=== PATIENT | male | born 1935 | race Caucasian/White ===

== ENCOUNTER → 2017-11-02 | Outpatient (CLI) | payer OTHER ==
[~2017-11-02] MED LIST: AMLODIPINE BESYL5 MG PO; CLONIDINE HCL0.1 M1 PO; COLACE100 MG PO; FENOFIBRATE130 M1 PO; GLUCOSAMINE1000 MG PO; HYDROCHLOROTHIA50 M1 PO; JANTOVEN4 M1 PO; LEUKERAN PO; MULTI VITAMINS1 TAB PO; OMEGA-31000 MG PO; TAMSULOSIN HCL0.4 MG PO; TOPROL XL50 M1 PO; VITAMIN D1000 IU PO
--- NOTE | ~2017-11-02 | PROC NOTE ---
[place], [place] PROCEDURE NOTE NAME: ELIZABETH TRUONG UNIT #: [id number] ROOM: DOCTOR: MAN PARKS BIRTHDATE: [birth year] DOS: 11/02/2017 MODIFIED BARIUM SWALLOW STUDY REFERRING PHYSICIAN: Dr. Wheeler. RADIOLOGIST: Dr. Perea. INDICATIONS: The patient is an 82-year-old male referred for an outpatient modified barium swallow due to recent nasopharyngeal regurgitation during a barium swallow procedure. The patient's significant medical history includes AFib and a fall (04/2016). The patient also reported hiatal hernia and esophageal dilation. GENERAL COMMENTS: Patient remained awake, alert, and pleasant throughout the exam. He endorsed history of nasopharyngeal regurgitation reporting that occasionally small foods such as rice would be expectorated from his nose after meals. He endorsed recent episode of nasopharyngeal regurgitation during procedure, but felt this was due to poor positioning. He denied additional swallowing concerns such as coughing/choking and reported that he consumes a regular diet with thin liquids. Oral mechanism exam unremarkable. The patient with upper and lower dentures in place. MBSS METHODS: Patient was seated upright in the chair during the exam. Exam was viewed in the lateral plane. The patient self-fed the following barium impregnated consistencies: Single sips of thin liquid via cup x 2, multiple consecutive sips of thin liquid via cup x 1, teaspoon of puree x 1 and bite of coarse solids x 1. The patient took large bites/sips. ORAL PHASE: No anterior or posterior loss noted. AP bolus transit was timely and adequate. Mastication also timely and complete. No contrast was observed entering the nasopharynx. PHARYNGEAL PHASE: Initiation of the swallow response was timely. HLE was adequate in both superior and anterior planes with subsequent complete epiglottic retroflexion. No aspiration or penetration was observed. Diffuse pharyngeal residue noted following bite of solids, disappeared due to bite size as base of tongue to posterior pharyngeal wall contact was adequate. Pharyngeal residue reduced with subsequent un-cued swallows. IMPRESSION: The patient presents with normal swallowing function and remains appropriate for regular diet with thin liquids. History of nasopharyngeal regurgitation appears to potentially esophageal in nature as regurgitation occurred with small foods and after the patient had finished eating/drinking. RECOMMENDATIONS: 1. Continue current diet, regular foods with thin liquids. 2. Standard aspiration precautions, fully upright, awake and alert for all [place], [place] PROCEDURE NOTE NAME: ELIZABETH TRUONG UNIT #: [id number] ROOM: DOCTOR: MAN PARKS BIRTHDATE: 37 p.o., small bites/sips, oral care at least b.i.d. Findings and recommendations were reviewed with the patient who expressed understanding. PLAN OF CARE: No further DIRECTORY CARRIER followup is warranted at this time. Thank you for consulting. Please contact the DIRECTORY CARRIER Department on [phone] with any questions/concerns. Man Rajput CM:PROCNOTE:PROCEDURE NOTE [id number] MAN PARKS
--- NOTE | ~2017-11-02 | SLPPN ---
[place], [place] COMMUNICATION CENTER OPERATOR PROGRESS NOTE NAME: ELIZABETH TRUONG UNIT #: [id number] ROOM: DOCTOR: ANDRES NUR Speech Language Pathology Treatment Note Page 1 1 of Patient Name: ELIZABETH TRUONG Date: 11/02/2017 10:47 AM : 1935 SOC Date: 11/02/2017 Provider: [facility] Provider #: [id number] Treating Clinician: SHERIF Guo Referring Physician: ANDRES NUR Onset Date Description Code Primary Diagnosis: 11/02/2017 R13.10 Dysphagia, unspecified Time In: 10:00 Time Out: 10:40 COMMUNICATION CENTER OPERATOR Interventions and CPT Codes Consisted of: CPT Code Modifiers Minutes Units MOTION FLUOROSCOPY/SWALLOW 76240 40 1 Total Minutes: 40 Total Timed Minutes: 0 Total Untimed Minutes: 40 Total Units: 1 Total Timed Units: 0 Total Untimed Units: 1 11/02/2017 10:48:52 AM SHERIF Guo Date/Time State License #: [id number]:[id number] [facility] [place]
--- NOTE | ~2017-11-02 | SLPPOC ---
[place], [place] MANAGER OF SALES PLAN OF CARE NAME: ELIZABETH TRUONG UNIT #: [id number] ROOM: DOCTOR: ANDRES NUR Speech Language Pathology Plan of Care Page 1 1 (Initial Evaluation) of Patient Name: ELIZABETH TRUONG Date: 11/02/2017 10:46 AM : 1935 SOC Date: 11/02/2017 Provider: [facility] Provider #: [id number] Treating Clinician: Gabrielle Rajput CCC-MANAGER OF SALES Referring Physician: ANDRES NUR 1 Visits From SOC: Onset Date Description Code Primary Diagnosis: 11/02/2017 R13.10 Dysphagia, unspecified Subjective Comments: Initial evaluation created to initiate the electronic medical record. Please see [employer] for details. Initial Level Goals Goals Yes Patient / Caregiver concurs with established treatment plan and goals: Functional Limitation Reporting Swallowing G8996 - Swallowing functional limitation, current status at therapy episode outset and at reporting intervals Current Status: CH - 0 percent impaired, limited or restricted G8997 - Swallowing functional limitation, projected goal status, at therapy episode outset, at reporting intervals, and at discharge or to end reporting Goal Status: CH - 0 percent impaired, limited or restricted G8998 - Swallowing functional limitation, discharge status, at discharge from therapy or to end reporting Discharge Status: CH - 0 percent impaired, limited or restricted 11/02/2017 10:47:52 AM ANDRES NUR Date/Time SHERIF Guo Date I certify the need for these services furnished under this plan of treatment while under my care. State License #: CM:[id number] [facility] [place]
--- NOTE | ~2017-11-02 | SLPIE ---
[place], [place] CANAL EQUIPMENT MAINTENANCE SUPERVISOR INITIAL EVALUATION NAME: ELIZABETH TRUONG UNIT #: [id number] ROOM: DOCTOR: ANDRES NUR Speech Language Pathology Initial Evaluation Page 1 1 of Patient Name: ELIZABETH TRUONG Date: 11/02/2017 10:46 AM : 1935 SOC Date: 11/02/2017 Provider: [facility] Provider #: [id number] Treating Clinician: Gabrielle Rajput CCC-CANAL EQUIPMENT MAINTENANCE SUPERVISOR Referring Physician: ANDRES NUR Patient Information Address: [place] [address] Physician: ANDRES NUR Physician #: City, [facility], Zip: [place] [address] Occupation: Unknown # of Approved Visits: 0 Gender: Male Kennel Aide: BRADFORD TRUONG Rehabilitation Information / History Onset Date Description Code R13.10 Dysphagia, unspecified Primary Diagnosis: 11/02/2017 Subjective Comments: Initial evaluation created to initiate the electronic medical record. Please see [employer] for details. Rehabilitation Information / History Clinical Findings Functional Goals Goals Yes Patient / Caregiver concurs with established treatment plan and goals: Functional Limitation Reporting Swallowing G8996 - Swallowing functional limitation, current status at therapy episode outset and at reporting intervals Current Status: CH - 0 percent impaired, limited or restricted G8997 - Swallowing functional limitation, projected goal status, at therapy episode outset, at reporting intervals, and at discharge or to end reporting Goal Status: CH - 0 percent impaired, limited or restricted G8998 - Swallowing functional limitation, discharge status, at discharge from therapy or to end reporting Discharge Status: CH - 0 percent impaired, limited or restricted 11/02/2017 10:47:52 AM Gabrielle Rajput CCC-ANSELMO Date/Time [place], [place] CANAL EQUIPMENT MAINTENANCE SUPERVISOR INITIAL EVALUATION NAME: ELIZABETH TRUONG UNIT #: [id number] ROOM: DOCTOR: ANDRES NUR [facility] License #: CM:SLPIE [id number] [facility] [place]
== END | disposition home or self-care (01) ==
LOC: RAD/SH 09:42
DX: R13.10 Dysphagia, unspecified (principal)

== ENCOUNTER → 2019-10-17 | Outpatient (CLI) | payer OTHER ==
[2019-10-17 10:30] LABS: CHOLESTEROL 193 mg/dL (<200); HDL CHOLESTEROL 32 mg/dl (40-60); LDL CHOLESTEROL 138 mg/dL (9-159); TRIGLYCERIDES 113 mg/dl (<150); VLDL CHOLESTEROL 23 mg/dL (6-40)
== END | disposition home or self-care (01) ==
LOC: LAB 09:33
PROVIDERS: Family Medicine
DX: I10 Essential (primary) hypertension (principal); E78.2 Mixed hyperlipidemia

== ENCOUNTER 2021-04-10 18:27 | Inpatient (IN) | payer OTHER ==
[~2021-04-10] VITALS: Ht 187.9 cm; Wt 102.1 kg
[2021-04-10 18:31] VITALS: BP 195/102
[2021-04-10 19:44] LABS: BASO % 0.3 % (0.0-1.0); EOS % 0.3 % (1.0-4.0); HEMATOCRIT 43.2 % (42.0-52.0); LYMPH # 2.6 10*3/uL (1.3-4.4); LYMPH % 41.2 % (27.0-41.0); MEAN CELL VOLUME 91.5 fl (80.0-94.0); MEAN CORPUSCULAR HGB 31.1 pg (27.0-31.0); MEAN PLATELET VOLUME 8.8 fl (9.6-12.3); MONO # 0.4 10*3/uL (0.1-1.0); MONO % 6.2 % (3.0-9.0); NEUT # 3.3 10*3/uL (2.3-7.9); NEUT % 51.5 % (47.0-73.0); PLATELET COUNT AUTOMATED 206 10*3/uL (130-400); RED BLOOD COUNT 4.72 10*6/uL (4.50-5.90); RED CELL DISTRI WIDTH 14.1 % (0-14.5); WHITE BLOOD COUNT 6.3 10*3/uL (4.8-10.8)
[2021-04-10 20:02] LABS: ALBUMIN 3.5 gm/dl (3.1-4.5); ALKALINE PHOSPHATASE 38 U/L (45-117); BUN 16 mg/dl (7-24); CHLORIDE 107 mmol/L (98-107); SGOT/AST 21 IU/L (3-35); SGPT/ALT 22 U/L (12-78); SODIUM 140 mmol/L (136-145); TOTAL PROTEIN 7.9 gm/dL (6.4-8.2)
[2021-04-10 20:05] LABS: TROPONIN I < 0.015 ng/ml (<0.045)
[2021-04-10 20:43] LABS: BILIRUBIN Negative (Negative); BLOOD Negative (Negative); CLARITY Clear (Clear); COLOR Yellow (Yellow); GLUCOSE Negative (Negative); KETONE Negative (Negative); LEUKO ESTERASE Trace (Negative); NITRITE Negative (Negative); PH 6.5 (4.5-8.0); SPECIFIC GRAVITY 1.015 (1.001-1.030); UROBILINOGEN 0.2 E.U./dl (0.0-1.0)
[2021-04-10 21:34] VITALS: BP 176/108
[2021-04-10 23:08] VITALS: BP 177/85
[2021-04-10 23:17] VITALS: BP 146/97
[2021-04-11 00:25] VITALS: BP 133/73
[2021-04-11 03:22] VITALS: BP 140/78
[2021-04-11 05:26] VITALS: BP 132/81
[2021-04-11 06:01] LABS: CHLORIDE 108 mmol/L (98-107); POTASSIUM 4.3 mmol/L (3.5-5.1); SODIUM 142 mmol/L (136-145)
[2021-04-11 06:11] LABS: BASO % 0.5 % (0.0-1.0); EOS # 0.1 10*3/uL (0.0-0.4); EOS % 1.1 % (1.0-4.0); HEMATOCRIT 40.1 % (42.0-52.0); LYMPH # 3.9 10*3/uL (1.3-4.4); LYMPH % 47.7 % (27.0-41.0); MEAN CELL VOLUME 92.8 fl (80.0-94.0); MEAN CORPUSCULAR HGB CONC 33.4 g/dl (33.0-37.0); MEAN PLATELET VOLUME 9.1 fl (9.6-12.3); MONO # 0.7 10*3/uL (0.1-1.0); NEUT # 3.4 10*3/uL (2.3-7.9); NEUT % 41.3 % (47.0-73.0); PLATELET COUNT AUTOMATED 212 10*3/uL (130-400); RED BLOOD COUNT 4.32 10*6/uL (4.50-5.90); RED CELL DISTRI WIDTH 13.9 % (0-14.5); WHITE BLOOD COUNT 8.3 10*3/uL (4.8-10.8)
[2021-04-11 06:19] LABS: ACT PARTIAL THROMBO TIME 41.9 SECONDS (20.0-32.1); ALKALINE PHOSPHATASE 29 U/L (45-117); BUN 14 mg/dl (7-24); CREATININE 0.96 mg/dL (0.70-1.30); INTERNATIONAL NORM RATIO 2.8 (2.0-3.5); SGOT/AST 17 IU/L (3-35); SGPT/ALT 20 U/L (12-78); TOTAL PROTEIN 6.9 gm/dL (6.4-8.2)
[2021-04-11 08:48] VITALS: BP 134/79
[2021-04-11] MEDS ORDERED: LASIX20 MG PO (13:03)
[2021-04-11] MEDS ORDERED: MECLIZINE HYD12.5 MG PO (13:04)
[2021-04-11] MEDS ORDERED: COZAAR100 MG PO (13:06)
[2021-04-11 14:20] VITALS: BP 152/95
[2021-04-11 16:33] VITALS: BP 127/70
== END 2021-04-11 16:40 | disposition home or self-care (01) | DRG 69 ==
LOC: ED 18:27 → EDHOLD 22:21 → 4E 04-11 16:37
PROVIDERS: Emergency Medicine; Hospitalist; ADMIT Internal Medicine; ATTEND Internal Medicine
DX: G45.9 Transient cerebral ischemic attack, unspecified (principal); G93.41 Metabolic encephalopathy; I48.21 Permanent atrial fibrillation; E44.1 Mild protein-calorie malnutrition; E83.41 Hypermagnesemia; R73.9 Hyperglycemia, unspecified; E78.5 Hyperlipidemia, unspecified; R56.9 Unspecified convulsions; I10 Essential (primary) hypertension; Z90.49 Acquired absence of other specified parts of digestive tract; Z87.891 Personal history of nicotine dependence; Z83.3 Family history of diabetes mellitus; Z79.899 Other long term (current) drug therapy; Z79.01 Long term (current) use of anticoagulants; Z95.0 Presence of cardiac pacemaker

== ENCOUNTER 2021-10-26 11:05 | Emergency (ER) | payer OTHER ==
[~2021-10-26 11:05] MED LIST changes: +COZAAR100 MG PO; +LASIX20 MG PO; +MECLIZINE HYD12.5 MG PO
[2021-10-26 11:34] LABS: BASO % 0.5 % (0.0-1.0); EOS # 0.1 10*3/uL (0.0-0.4); EOS % 0.6 % (1.0-4.0); HEMATOCRIT 43.6 % (42.0-52.0); LYMPH # 4.4 10*3/uL (1.3-4.4); MEAN CELL VOLUME 92.6 fl (80.0-94.0); MEAN CORPUSCULAR HGB CONC 33.5 g/dl (33.0-37.0); MEAN PLATELET VOLUME 8.5 fl (9.6-12.3); MONO # 0.8 10*3/uL (0.1-1.0); MONO % 9.6 % (3.0-9.0); NEUT % 35.9 % (47.0-73.0); PLATELET COUNT AUTOMATED 178 10*3/uL (130-400); RED BLOOD COUNT 4.71 10*6/uL (4.50-5.90); RED CELL DISTRI WIDTH 14.6 % (0-14.5); WHITE BLOOD COUNT 8.4 10*3/uL (4.8-10.8)
[2021-10-26 11:44] LABS: INTERNATIONAL NORM RATIO 2.6 (2.0-3.5)
[2021-10-26 11:51] LABS: ALKALINE PHOSPHATASE 31 U/L (45-117); BUN 22 mg/dl (7-24); CHLORIDE 107 mmol/L (98-107); CREATININE 1.23 mg/dL (0.70-1.30); POTASSIUM 3.9 mmol/L (3.5-5.1); SGOT/AST 18 IU/L (3-35); SGPT/ALT 18 U/L (12-78); SODIUM 140 mmol/L (136-145); TOTAL PROTEIN 7.5 gm/dL (6.4-8.2)
[2021-10-26 12:07] LABS: BILIRUBIN Negative (Negative); BLOOD Negative (Negative); CLARITY Clear (Clear); COLOR Yellow (Yellow); GLUCOSE Negative (Negative); KETONE Negative (Negative); LEUKO ESTERASE 2+ (Negative); NITRITE Negative (Negative); PH 5.5 (4.5-8.0); SPECIFIC GRAVITY 1.015 (1.001-1.030)
[2021-10-26] MEDS ORDERED: ATIVAN0.5 MG PO (19:42)
== END 2021-10-26 21:17 | disposition home or self-care (01) ==
LOC: ED 11:05
PROVIDERS: Physician Assistant
DX: F41.9 Anxiety disorder, unspecified (principal); R60.9 Edema, unspecified; Z87.891 Personal history of nicotine dependence; Z90.49 Acquired absence of other specified parts of digestive tract; Z98.890 Other specified postprocedural states; Z79.01 Long term (current) use of anticoagulants; Z79.899 Other long term (current) drug therapy

== ENCOUNTER 2022-01-17 15:50 | Inpatient (IN) | payer OTHER ==
[~2022-01-17] VITALS: Ht 187.9 cm; Wt 92.7 kg
[~2022-01-17 15:50] MED LIST changes: +ATIVAN0.5 MG PO
[2022-01-17 15:59] VITALS: BP 172/92
[2022-01-17 16:20] LABS: BILIRUBIN Negative (Negative); BLOOD Negative (Negative); CLARITY Clear (Clear); COLOR Yellow (Yellow); GLUCOSE Negative (Negative); KETONE Negative (Negative); LEUKO ESTERASE 1+ (Negative); NITRITE Negative (Negative); PH 5.5 (4.5-8.0); SPECIFIC GRAVITY 1.015 (1.001-1.030)
[2022-01-17 16:40] LABS: BASO % 0.5 % (0.0-1.0); EOS % 0.1 % (1.0-4.0); HEMATOCRIT 45.8 % (42.0-52.0); LYMPH # 4.1 10*3/uL (1.3-4.4); LYMPH % 50.5 % (27.0-41.0); MEAN CELL VOLUME 93.1 fl (80.0-94.0); MEAN CORPUSCULAR HGB 31.1 pg (27.0-31.0); MEAN CORPUSCULAR HGB CONC 33.4 g/dl (33.0-37.0); MONO # 0.6 10*3/uL (0.1-1.0); NEUT # 3.4 10*3/uL (2.3-7.9); NEUT % 41.7 % (47.0-73.0); PLATELET COUNT AUTOMATED 176 10*3/uL (130-400); RED BLOOD COUNT 4.92 10*6/uL (4.50-5.90); RED CELL DISTRI WIDTH 14.3 % (0-14.5); WHITE BLOOD COUNT 8.2 10*3/uL (4.8-10.8)
[2022-01-17 16:40] LABS: BACTERIA 2+
[2022-01-17 16:51] LABS: ACT PARTIAL THROMBO TIME 36.7 SECONDS (20.0-32.1)
[2022-01-17 17:07] LABS: ALKALINE PHOSPHATASE 37 U/L (45-117); BUN 18 mg/dl (7-24); CHLORIDE 104 mmol/L (98-107); CREATININE 1.08 mg/dL (0.70-1.30); LIPASE 281 U/L (73-393); POTASSIUM 4.1 mmol/L (3.5-5.1); SGOT/AST 18 IU/L (3-35); SGPT/ALT 20 U/L (12-78); SODIUM 137 mmol/L (136-145); TOTAL PROTEIN 7.7 gm/dL (6.4-8.2)
[2022-01-17 18:47] VITALS: BP 167/72
[2022-01-17 19:37] VITALS: BP 159/105
[2022-01-18] VITALS: BP 160/79
[2022-01-18 06:24] LABS: HEMATOCRIT 44.7 % (42.0-52.0); MANUAL DIFF REFLEX YES; MEAN CELL VOLUME 93.1 fl (80.0-94.0); MEAN CORPUSCULAR HGB CONC 33.3 g/dl (33.0-37.0); MEAN PLATELET VOLUME 9.4 fl (9.6-12.3); PLATELET COUNT AUTOMATED 195 10*3/uL (130-400); WHITE BLOOD COUNT 13.3 10*3/uL (4.8-10.8)
[2022-01-18 06:51] LABS: CHLORIDE 103 mmol/L (98-107); POTASSIUM 4.3 mmol/L (3.5-5.1); SODIUM 139 mmol/L (136-145)
[2022-01-18 06:58] LABS: ALKALINE PHOSPHATASE 35 U/L (45-117); BUN 19 mg/dl (7-24); CREATININE 1.06 mg/dL (0.70-1.30); SGOT/AST 17 IU/L (3-35); SGPT/ALT 17 U/L (12-78); TOTAL PROTEIN 7.7 gm/dL (6.4-8.2)
[2022-01-18 07:19] LABS: BASOPHILS 1 % (0-1); TOTAL CELLS COUNTED 100 #CELLS
[2022-01-18 07:20] LABS: BURR CELLS FEW; PLATELET SUFFICIENCY NORMAL (NORMAL); POLYCHROMASIA SLIGHT
[2022-01-18 08:00] VITALS: BP 157/82
[2022-01-18] MEDS ORDERED: SERTRALINE HYDR25 MG PO (09:11)
[2022-01-18 12:00] VITALS: BP 136/76
[2022-01-18 16:00] VITALS: BP 147/75
[2022-01-18 20:00] VITALS: BP 143/72
[2022-01-19] VITALS: BP 141/87
[2022-01-19 05:40] LABS: BUN 20 mg/dl (7-24); CHLORIDE 106 mmol/L (98-107); CREATININE 1.11 mg/dL (0.70-1.30); POTASSIUM 3.8 mmol/L (3.5-5.1); SODIUM 141 mmol/L (136-145)
[2022-01-19 06:17] LABS: HEMATOCRIT 45.1 % (42.0-52.0); MEAN CELL VOLUME 90.7 fl (80.0-94.0); MEAN CORPUSCULAR HGB 31.4 pg (27.0-31.0); MEAN CORPUSCULAR HGB CONC 34.6 g/dl (33.0-37.0); MEAN PLATELET VOLUME 9.4 fl (9.6-12.3); PLATELET COUNT AUTOMATED 215 10*3/uL (130-400); RED BLOOD COUNT 4.97 10*6/uL (4.50-5.90); RED CELL DISTRI WIDTH 14.1 % (0-14.5)
[2022-01-19 06:19] LABS: INTERNATIONAL NORM RATIO 1.8 (2.0-3.5)
[2022-01-19 06:22] LABS: MANUAL DIFF REFLEX YES
[2022-01-19 07:02] LABS: PLATELET SUFFICIENCY NORMAL (NORMAL); POLYCHROMASIA SLIGHT; TOTAL CELLS COUNTED 100 #CELLS
[2022-01-19 08:00] VITALS: BP 158/90
[2022-01-19 12:00] VITALS: BP 110/65
[2022-01-19 16:00] VITALS: BP 117/73
[2022-01-19 20:00] VITALS: BP 142/83
[2022-01-20] VITALS: BP 155/85
[2022-01-20 06:26] LABS: HEMATOCRIT 42.7 % (42.0-52.0); MEAN CELL VOLUME 92.8 fl (80.0-94.0); MEAN CORPUSCULAR HGB 30.9 pg (27.0-31.0); MEAN CORPUSCULAR HGB CONC 33.3 g/dl (33.0-37.0); MEAN PLATELET VOLUME 9.2 fl (9.6-12.3); PLATELET COUNT AUTOMATED 158 10*3/uL (130-400); RED CELL DISTRI WIDTH 14.3 % (0-14.5); WHITE BLOOD COUNT 11.6 10*3/uL (4.8-10.8)
[2022-01-20 06:32] LABS: MANUAL DIFF REFLEX YES
[2022-01-20 07:01] LABS: BUN 17 mg/dl (7-24); CHLORIDE 108 mmol/L (98-107); CREATININE 0.96 mg/dL (0.70-1.30); POTASSIUM 3.2 mmol/L (3.5-5.1); SGOT/AST 29 IU/L (3-35); SGPT/ALT 20 U/L (12-78); SODIUM 143 mmol/L (136-145)
[2022-01-20 07:02] LABS: ALKALINE PHOSPHATASE 31 U/L (45-117); TOTAL PROTEIN 6.6 gm/dL (6.4-8.2)
[2022-01-20 07:28] LABS: OVALOCYTES FEW; PLATELET SUFFICIENCY NORMAL (NORMAL); POLYCHROMASIA SLIGHT; TOTAL CELLS COUNTED 100 #CELLS
[2022-01-20 08:00] VITALS: BP 148/88
[2022-01-20] MEDS ORDERED: CIPRO500 MG PO (11:45)
[2022-01-20 12:00] VITALS: BP 155/84
== END 2022-01-20 15:29 | disposition home health service (06) | DRG 689 ==
LOC: ED 15:50 → 4E 18:19 → EDHOLD 18:19 → 4E 23:13
PROVIDERS: Emergency Medicine; Family Medicine; Internal Medicine; Physical Therapist; Registered Nurse; ADMIT Internal Medicine; ATTEND Internal Medicine
DX: N39.0 Urinary tract infection, site not specified (principal); G93.41 Metabolic encephalopathy; C91.10 Chronic lymphocytic leukemia of B-cell type not having achieved remission; I48.21 Permanent atrial fibrillation; G31.9 Degenerative disease of nervous system, unspecified; N40.0 Benign prostatic hyperplasia without lower urinary tract symptoms; F41.9 Anxiety disorder, unspecified; E83.41 Hypermagnesemia; R73.9 Hyperglycemia, unspecified; R59.1 Generalized enlarged lymph nodes; Z98.49 Cataract extraction status, unspecified eye; Z90.49 Acquired absence of other specified parts of digestive tract; Z83.3 Family history of diabetes mellitus; Z95.0 Presence of cardiac pacemaker

== ENCOUNTER 2022-10-26 14:32 | Inpatient (IN) | payer OTHER ==
[~2022-10-26] VITALS: Ht 187.9 cm; Wt 112.5 kg
[2022-10-26 14:32] VITALS: BP 145/81
[~2022-10-26 14:32] MED LIST changes: +CEPHALEXIN500 M1 PO; +CIPRO500 MG PO; +FISH OIL 1,2001 EAC4 PO; -OMEGA-31000 MG PO; +SERTRALINE HYDR25 MG PO
[2022-10-26] MEDS ORDERED: FLUOROURACIL40 GM T (15:02)
[2022-10-26] MEDS ORDERED: GENTACIDIN5 ML NAS (15:03)
[2022-10-26] MEDS ORDERED: KENALOG 0.1%80 GM T (15:03)
[2022-10-26] MEDS ORDERED: FEXOFENADINE H180 M1 PO (15:05)
[2022-10-26 15:06] LABS: HEMATOCRIT 42.6 % (42.0-52.0); MANUAL DIFF REFLEX YES; MEAN CELL VOLUME 94.2 fl (80.0-94.0); MEAN CORPUSCULAR HGB 31.6 pg (27.0-31.0); MEAN CORPUSCULAR HGB CONC 33.6 g/dl (33.0-37.0); MEAN PLATELET VOLUME 8.8 fl (9.6-12.3); PLATELET COUNT AUTOMATED 185 10*3/uL (130-400); RED BLOOD COUNT 4.52 10*6/uL (4.50-5.90); RED CELL DISTRI WIDTH 14.4 % (0-14.5); WHITE BLOOD COUNT 13.7 10*3/uL (4.8-10.8)
[2022-10-26 15:25] LABS: ACT PARTIAL THROMBO TIME 39.6 SECONDS (20.0-32.1); INTERNATIONAL NORM RATIO 2.1 (2.0-3.5)
[2022-10-26 15:30] LABS: ALKALINE PHOSPHATASE 35 U/L (46-116); BUN 14 mg/dl (9-23); CHLORIDE 103 mmol/L (98-107); LIPASE 56 U/L (12-53); POTASSIUM 3.9 mmol/L (3.4-5.1); SGPT/ALT 11 U/L (10-49); TOTAL PROTEIN 7.8 gm/dL (6.0-8.0)
[2022-10-26 15:37] LABS: ATYPICAL LYMPHS 3 % (0-0); PLATELET SUFFICIENCY NORMAL (NORMAL); TOTAL CELLS COUNTED 100 #CELLS
[2022-10-26 15:39] LABS: OVALOCYTES FEW
[2022-10-26 15:53] LABS: BILIRUBIN Negative (Negative); BLOOD Trace-Lysed (Negative); CLARITY Clear (Clear); COLOR Yellow (Yellow); GLUCOSE Negative (Negative); KETONE Negative (Negative); LEUKO ESTERASE 3+ (Negative); NITRITE Negative (Negative); PH 5.5 (4.5-8.0); UROBILINOGEN 0.2 E.U./dl (0.0-1.0)
[2022-10-26 16:05] LABS: BACTERIA 1+; WBC 21-30 wbc/hpf (0-5)
[2022-10-26 21:47] VITALS: BP 163/78
[2022-10-27 03:15] VITALS: BP 154/73
[2022-10-27 04:58] LABS: INTERNATIONAL NORM RATIO 1.9 (2.0-3.5)
[2022-10-27 05:16] LABS: ALKALINE PHOSPHATASE 31 U/L (46-116); BUN 17 mg/dl (9-23); CHLORIDE 105 mmol/L (98-107); CHOLESTEROL 186 mg/dL (<200); LDL CHOLESTEROL 132 mg/dL (9-159); SGPT/ALT 9 U/L (10-49); THYROID STIM HORMONE (HS) 3.568 uIU/ml (0.550-4.780); TOTAL PROTEIN 7.2 gm/dL (6.0-8.0); TRIGLYCERIDES 148 mg/dl (<150)
[2022-10-27 06:10] LABS: VITAMIN D, 25-HYDROXY 46.3 ng/mL (30-100)
[2022-10-27 06:22] LABS: HEMATOCRIT 41.4 % (42.0-52.0); MEAN CELL VOLUME 94.3 fl (80.0-94.0); MEAN CORPUSCULAR HGB 31.4 pg (27.0-31.0); MEAN CORPUSCULAR HGB CONC 33.3 g/dl (33.0-37.0); MEAN PLATELET VOLUME 9.1 fl (9.6-12.3); PLATELET COUNT AUTOMATED 193 10*3/uL (130-400); RED BLOOD COUNT 4.39 10*6/uL (4.50-5.90); RED CELL DISTRI WIDTH 14.3 % (0-14.5); WHITE BLOOD COUNT 14.5 10*3/uL (4.8-10.8)
[2022-10-27 06:25] LABS: MANUAL DIFF REFLEX YES
[2022-10-27 07:47] LABS: PLATELET SUFFICIENCY NORMAL (NORMAL); TOTAL CELLS COUNTED 100 #CELLS
[2022-10-27 08:00] VITALS: BP 134/73
[2022-10-27] MEDS ORDERED: PROSCAR5 M1 PO (09:55)
[2022-10-27 12:00] VITALS: BP 114/61
[2022-10-27 16:00] VITALS: BP 155/80
[2022-10-27 20:00] VITALS: BP 141/79
[2022-10-28] VITALS: BP 116/65
[2022-10-28 08:00] VITALS: BP 130/66
[2022-10-28 12:00] VITALS: BP 143/76
[2022-10-28 16:00] VITALS: BP 112/64
[2022-10-28 20:00] VITALS: BP 143/78
[2022-10-29] VITALS: BP 134/73
[2022-10-29 04:34] LABS: HEMATOCRIT 37.9 % (42.0-52.0); MEAN CORPUSCULAR HGB 31.3 pg (27.0-31.0); MEAN CORPUSCULAR HGB CONC 33.2 g/dl (33.0-37.0); PLATELET COUNT AUTOMATED 175 10*3/uL (130-400); RED BLOOD COUNT 4.03 10*6/uL (4.50-5.90); RED CELL DISTRI WIDTH 14.2 % (0-14.5); WHITE BLOOD COUNT 14.5 10*3/uL (4.8-10.8)
[2022-10-29 04:42] LABS: MANUAL DIFF REFLEX YES
[2022-10-29 04:52] LABS: INTERNATIONAL NORM RATIO 1.6 (2.0-3.5)
[2022-10-29 05:41] LABS: ATYPICAL LYMPHS 3 % (0-0); BASOPHILS 1 % (0-1); PLATELET SUFFICIENCY NORMAL (NORMAL); TOTAL CELLS COUNTED 100 #CELLS
[2022-10-29 08:00] VITALS: BP 154/85
[2022-10-29 12:00] VITALS: BP 112/59
[2022-10-29] MEDS ORDERED: LEVOFLOXACIN750 M2 PO (12:19)
== END 2022-10-29 14:41 | disposition home or self-care (01) | DRG 689 ==
LOC: ED 14:32 → EDHOLD 17:13 → 5E 10-27 03:20
PROVIDERS: Emergency Medicine; Internal Medicine; Student in an Organized Health Care Education/Training Program; ADMIT Internal Medicine; ATTEND Internal Medicine
DX: N39.0 Urinary tract infection, site not specified (principal); G93.41 Metabolic encephalopathy; C91.10 Chronic lymphocytic leukemia of B-cell type not having achieved remission; R31.9 Hematuria, unspecified; I10 Essential (primary) hypertension; R73.9 Hyperglycemia, unspecified; I48.91 Unspecified atrial fibrillation; F41.9 Anxiety disorder, unspecified; G31.9 Degenerative disease of nervous system, unspecified; R56.9 Unspecified convulsions; R00.1 Bradycardia, unspecified; Z90.49 Acquired absence of other specified parts of digestive tract; Z87.891 Personal history of nicotine dependence; Z79.01 Long term (current) use of anticoagulants; Z79.899 Other long term (current) drug therapy

== ENCOUNTER 2022-11-28 10:38 | Emergency (ER) | payer OTHER ==
[~2022-11-28] VITALS: Ht 187.9 cm; Wt 104.3 kg
[~2022-11-28 10:38] MED LIST changes: +FEXOFENADINE H180 M1 PO; +FLUOROURACIL40 GM T; +GENTACIDIN5 ML NAS; +KENALOG 0.1%80 GM T; +LEVOFLOXACIN750 M2 PO; +PROSCAR5 M1 PO
[2022-11-28 11:42] LABS: BILIRUBIN Negative (Negative); BLOOD Trace-Lysed (Negative); CLARITY Clear (Clear); COLOR Yellow (Yellow); GLUCOSE Negative (Negative); KETONE Negative (Negative); LEUKO ESTERASE 1+ (Negative); NITRITE Negative (Negative); UROBILINOGEN 0.2 E.U./dl (0.0-1.0)
[2022-11-28 11:49] LABS: HEMATOCRIT 43.5 % (42.0-52.0); MEAN CORPUSCULAR HGB 30.9 pg (27.0-31.0); MEAN CORPUSCULAR HGB CONC 32.9 g/dl (33.0-37.0); MEAN PLATELET VOLUME 8.7 fl (9.6-12.3); PLATELET COUNT AUTOMATED 175 10*3/uL (130-400); RED BLOOD COUNT 4.63 10*6/uL (4.50-5.90); RED CELL DISTRI WIDTH 14.5 % (0-14.5)
[2022-11-28 11:54] LABS: BACTERIA TRACE; EPITHELIAL CELLS 0-2; MUCOUS 1+
[2022-11-28 11:56] LABS: MANUAL DIFF REFLEX YES
[2022-11-28 12:10] LABS: BURR CELLS FEW; OVALOCYTES FEW; PLATELET SUFFICIENCY NORMAL (NORMAL); POLYCHROMASIA SLIGHT; TOTAL CELLS COUNTED 100 #CELLS
[2022-11-28 12:13] LABS: POTASSIUM 4.7 mmol/L (3.4-5.1); TOTAL PROTEIN 7.6 gm/dL (6.0-8.0)
[2022-11-28] MEDS ORDERED: AMOX-CLAV 875-1 EACH PO (14:13)
== END 2022-11-28 14:30 | disposition home or self-care (01) ==
LOC: ED 10:38
PROVIDERS: Nurse Practitioner Family
DX: K57.32 Diverticulitis of large intestine without perforation or abscess without bleeding (principal); K62.5 Hemorrhage of anus and rectum; I10 Essential (primary) hypertension; M19.90 Unspecified osteoarthritis, unspecified site; I48.91 Unspecified atrial fibrillation; Z90.49 Acquired absence of other specified parts of digestive tract; Z98.890 Other specified postprocedural states; Z87.891 Personal history of nicotine dependence; Z79.899 Other long term (current) drug therapy

== ENCOUNTER 2023-06-29 08:59 | Inpatient (IN) | payer OTHER ==
[~2023-06-29] VITALS: Ht 187.9 cm; Wt 98.5 kg
[2023-06-29] VITALS (30 sets, daily range): BP systolic 70–161; BP diastolic 40–90
[~2023-06-29 08:59] MED LIST changes: +AMOX-CLAV 875-1 EACH PO; +[UNRECOGNIZED DRUG - CODE] PO
[2023-06-29] MEDS ORDERED: SODIUM CHLORIDE 0.9% 1,000 ML IV ONE ×3 (09:10)
[2023-06-29] MEDS ORDERED: ACETAMINOPHEN 325 MG TAB PO ONE (09:10)
[2023-06-29] MEDS ORDERED: TAMSULOSIN HCL0.4 MG PO (09:33)
[2023-06-29] MEDS ORDERED: KEFLEX 500 MG E2 CAP PO (09:34)
[2023-06-29] MEDS ORDERED: SERTRALINE HYDR50 MG PO (09:34)
[2023-06-29 09:40] LABS: MEAN CELL VOLUME 97.5 fl (80.0-94.0); MEAN CORPUSCULAR HGB 30.6 pg (27.0-31.0); MEAN CORPUSCULAR HGB CONC 31.4 g/dl (33.0-37.0); MEAN PLATELET VOLUME 8.9 fl (9.6-12.3); PLATELET COUNT AUTOMATED 147 10*3/uL (130-400); RED BLOOD COUNT 3.59 10*6/uL (4.50-5.90); RED CELL DISTRI WIDTH 16.3 % (0-14.5); WHITE BLOOD COUNT 28.1 10*3/uL (4.8-10.8)
[2023-06-29 09:44] LABS: MANUAL DIFF REFLEX YES
[2023-06-29 10:06] LABS: TOTAL PROTEIN 6.1 gm/dL (6.0-8.0)
[2023-06-29 10:35] LABS: ATYPICAL LYMPHS 1 % (0-0); TOTAL CELLS COUNTED 100 #CELLS
[2023-06-29 10:36] LABS: ROULEAUX SLIGHT
[2023-06-29 10:37] LABS: PLATELET SUFFICIENCY NORMAL (NORMAL)
[2023-06-29 10:59] LABS: BILIRUBIN 2+ (Negative); BLOOD 3+ (Negative); CLARITY Turbid (Clear); COLOR Orange (Yellow); GLUCOSE Negative (Negative); KETONE Negative (Negative); LEUKO ESTERASE 3+ (Negative); NITRITE Positive (Negative)
[2023-06-29] MEDS ORDERED: Ceftriaxone Sodium 1 GM/10 ML SYR IV ONE (11:00)
[2023-06-29 11:07] LABS: BACTERIA 4+; WBC TNTC wbc/hpf (0-5)
[2023-06-29 11:08] LABS: CALCIUM OXALATE CRYSTALS Trace
[2023-06-29] MEDS ORDERED: ACETAMINOPHEN 325 MG TAB PO PRN (13:30)
[2023-06-29] MEDS ORDERED: Acetaminophen/Hydrocodone 5 MG/325 MG TABLET PO PRN (13:30)
[2023-06-29] MEDS ORDERED: ACETAMINOPHEN 650 MG SUPP R PRN (13:30)
[2023-06-29] MEDS ORDERED: BISACODYL 5 MG TAB PO PRN (13:30)
[2023-06-29] MEDS ORDERED: Ondansetron Hydrochloride 4 MG/2 ML VIAL IV PRN (13:30)
[2023-06-29] MEDS ORDERED: MORPHINE Sulfate 2 MG/ML SYR IV PRN (13:30)
[2023-06-29] MEDS ORDERED: NOREPINEPHRINE BITARTRATE/D5W 250 ML IV SCH (13:30)
[2023-06-29] MEDS ORDERED: BISACODYL 10 MG SUPP R PRN (13:30)
[2023-06-29] MEDS ORDERED: HEPARIN SODIUM 250 ML IV SCH (13:35)
[2023-06-29] MEDS ORDERED: Meropenem 1 GM in SODIUM CHLORIDE 0.9% 100 ML IV SCH (14:00)
[2023-06-29] MEDS ORDERED: ASPIRIN ENTERIC COATED 81 MG TAB PO SCH (14:55)
[2023-06-30] VITALS (86 sets, daily range): BP systolic 84–132; BP diastolic 41–90
[2023-06-30 06:00] LABS: HEMATOCRIT 36.3 % (42.0-52.0); MEAN CELL VOLUME 98.4 fl (80.0-94.0); MEAN CORPUSCULAR HGB 29.5 pg (27.0-31.0); MEAN PLATELET VOLUME 9.4 fl (9.6-12.3); PLATELET COUNT AUTOMATED 165 10*3/uL (130-400); RED BLOOD COUNT 3.69 10*6/uL (4.50-5.90); RED CELL DISTRI WIDTH 16.4 % (0-14.5); WHITE BLOOD COUNT 34.6 10*3/uL (4.8-10.8)
[2023-06-30] MEDS ORDERED: Pantoprazole Sodium 40 MG VIAL IV SCH (06:00)
[2023-06-30 06:16] LABS: MANUAL DIFF REFLEX YES
[2023-06-30 06:18] LABS: TOTAL PROTEIN 5.9 gm/dL (6.0-8.0)
[2023-06-30 08:13] LABS: PLATELET SUFFICIENCY NORMAL (NORMAL); ROULEAUX MODERATE; TOTAL CELLS COUNTED 100 #CELLS
[2023-06-30] MEDS ORDERED: ATORVASTATIN CALCIUM 40 MG TABLET PO SCH (10:00)
[2023-06-30] MEDS ORDERED: Enoxaparin Sodium 40 MG/0.4 ML SYR SC SCH (10:00)
[2023-06-30] MEDS ORDERED: FINASTERIDE 5 MG TAB PO SCH (15:10)
[2023-06-30] MEDS ORDERED: Tamsulosin Hydrochloride 0.4 MG CAP PO SCH (15:10)
[2023-06-30] MEDS ORDERED: Sertraline Hydrochloride 50 MG TAB PO SCH (15:10)
[2023-06-30] MEDS ORDERED: Menthol/Zinc Oxide 113 GM THIN T SCH (15:55)
[2023-06-30] MEDS ORDERED: CHAIR CUSHION DEVICE ONE (17:04)
[2023-06-30] MEDS ORDERED: HEEL PROTECTOR DEVICE ONE (17:04)
[2023-07-01] VITALS (37 sets, daily range): BP systolic 90–139; BP diastolic 52–82
[2023-07-01 06:12] LABS: HEMATOCRIT 33.4 % (42.0-52.0); MEAN CELL VOLUME 97.4 fl (80.0-94.0); MEAN CORPUSCULAR HGB CONC 30.8 g/dl (33.0-37.0); MEAN PLATELET VOLUME 9.3 fl (9.6-12.3); PLATELET COUNT AUTOMATED 155 10*3/uL (130-400); RED BLOOD COUNT 3.43 10*6/uL (4.50-5.90); RED CELL DISTRI WIDTH 16.2 % (0-14.5); WHITE BLOOD COUNT 22.9 10*3/uL (4.8-10.8)
[2023-07-01 06:15] LABS: MANUAL DIFF REFLEX YES
[2023-07-01 07:39] LABS: PLATELET SUFFICIENCY NORMAL (NORMAL); ROULEAUX MODERATE; TOTAL CELLS COUNTED 100 #CELLS
[2023-07-01 07:58] LABS: BUN 26 mg/dl (9-23); CHLORIDE 109 mmol/L (98-107); POTASSIUM 3.6 mmol/L (3.4-5.1)
[2023-07-01] MEDS ORDERED: Tamsulosin Hydrochloride 0.4 MG CAP PO SCH (10:00)
[2023-07-01] MEDS ORDERED: FINASTERIDE 5 MG TAB PO SCH (10:00)
[2023-07-01] MEDS ORDERED: Sertraline Hydrochloride 50 MG TAB PO SCH (10:00)
[2023-07-01] MEDS ORDERED: RIVAROXABAN 20 MG TAB PO SCH (18:00)
[2023-07-01] MEDS ORDERED: Ceftriaxone Sodium 2 GM in SYRINGE INFUSION 20 ML IV SCH (22:00)
[2023-07-02] VITALS: BP 106/62
[2023-07-02 04:00] VITALS: BP 112/76
[2023-07-02 05:49] LABS: BUN 20 mg/dl (9-23); CHLORIDE 110 mmol/L (98-107); POTASSIUM 3.5 mmol/L (3.4-5.1)
[2023-07-02 06:43] LABS: HEMATOCRIT 33.8 % (42.0-52.0); MEAN CELL VOLUME 97.7 fl (80.0-94.0); MEAN CORPUSCULAR HGB 29.8 pg (27.0-31.0); MEAN CORPUSCULAR HGB CONC 30.5 g/dl (33.0-37.0); MEAN PLATELET VOLUME 9.7 fl (9.6-12.3); PLATELET COUNT AUTOMATED 159 10*3/uL (130-400); RED BLOOD COUNT 3.46 10*6/uL (4.50-5.90); RED CELL DISTRI WIDTH 16.4 % (0-14.5); WHITE BLOOD COUNT 21.4 10*3/uL (4.8-10.8)
[2023-07-02 06:44] LABS: MANUAL DIFF REFLEX YES
[2023-07-02 07:18] LABS: PLATELET SUFFICIENCY NORMAL (NORMAL); POLYCHROMASIA SLIGHT; TOTAL CELLS COUNTED 100 #CELLS
[2023-07-02 07:19] LABS: BURR CELLS FEW
[2023-07-02 08:00] VITALS: BP 120/60
[2023-07-02 12:00] VITALS: BP 124/79
[2023-07-02] MEDS ORDERED: Menthol/Zinc Oxide 113 GM THIN T PRN (14:10)
[2023-07-02 16:04] VITALS: BP 112/62
[2023-07-02 20:00] VITALS: BP 144/71
[2023-07-02] MEDS ORDERED: NYSTATIN 15 GM BOT T SCH (22:00)
[2023-07-02] MEDS ORDERED: Menthol/Zinc Oxide 113 GM THIN T SCH (22:00)
[2023-07-03] VITALS: BP 140/71
[2023-07-03 06:22] LABS: HEMATOCRIT 35.1 % (42.0-52.0); MEAN CELL VOLUME 98.6 fl (80.0-94.0); MEAN CORPUSCULAR HGB 30.3 pg (27.0-31.0); MEAN CORPUSCULAR HGB CONC 30.8 g/dl (33.0-37.0); MEAN PLATELET VOLUME 9.4 fl (9.6-12.3); PLATELET COUNT AUTOMATED 178 10*3/uL (130-400); RED BLOOD COUNT 3.56 10*6/uL (4.50-5.90); RED CELL DISTRI WIDTH 15.9 % (0-14.5); WHITE BLOOD COUNT 24.9 10*3/uL (4.8-10.8)
[2023-07-03 06:35] LABS: MANUAL DIFF REFLEX YES
[2023-07-03 06:36] LABS: BUN 17 mg/dl (9-23); CHLORIDE 110 mmol/L (98-107); POTASSIUM 3.7 mmol/L (3.4-5.1)
[2023-07-03 08:00] VITALS: BP 141/88
[2023-07-03 08:46] LABS: ATYPICAL LYMPHS 3 % (0-0); TOTAL CELLS COUNTED 100 #CELLS
[2023-07-03 08:47] LABS: MICROCYTOSIS SLIGHT; PLATELET SUFFICIENCY NORMAL (NORMAL)
[2023-07-03] MEDS ORDERED: METOPROLOL SUCCINATE XR 25 MG TAB PO SCH (10:00)
[2023-07-03] MEDS ORDERED: FUROSEMIDE 40 MG/4 ML VIAL IV ONE (11:20)
[2023-07-03 12:00] VITALS: BP 112/74
[2023-07-03 16:00] VITALS: BP 120/63
[2023-07-03 20:00] VITALS: BP 120/76
[2023-07-04] VITALS: BP 131/73
[2023-07-04 06:21] LABS: MANUAL DIFF REFLEX YES; MEAN CELL VOLUME 98.7 fl (80.0-94.0); MEAN CORPUSCULAR HGB 29.9 pg (27.0-31.0); MEAN CORPUSCULAR HGB CONC 30.3 g/dl (33.0-37.0); MEAN PLATELET VOLUME 9.4 fl (9.6-12.3); PLATELET COUNT AUTOMATED 184 10*3/uL (130-400); RED BLOOD COUNT 3.75 10*6/uL (4.50-5.90); RED CELL DISTRI WIDTH 15.9 % (0-14.5); WHITE BLOOD COUNT 26.7 10*3/uL (4.8-10.8)
[2023-07-04 06:35] LABS: BUN 13 mg/dl (9-23); CHLORIDE 110 mmol/L (98-107); POTASSIUM 3.8 mmol/L (3.4-5.1)
[2023-07-04 07:28] LABS: BASOPHILS 1 % (0-1); BURR CELLS FEW; PLATELET SUFFICIENCY NORMAL (NORMAL); POLYCHROMASIA SLIGHT; TOTAL CELLS COUNTED 100 #CELLS
[2023-07-04 08:00] VITALS: BP 141/79
[2023-07-04 12:00] VITALS: BP 108/76
[2023-07-04] MEDS ORDERED: LEVOFLOXACIN750 M2 PO (13:17)
[2023-07-04] MEDS ORDERED: ATORVASTATIN CA40 M1 PO (13:17)
[2023-07-04] MEDS ORDERED: ASPIRIN ADULT L81 M2 PO (13:17)
[2023-07-04] MEDS ORDERED: METOPROLOL SUCC25 M2 PO (13:17)
[2023-07-04] MEDS ORDERED: XARE20MG PO (13:17)
== END 2023-07-04 15:38 | DRG 698 ==
LOC: ED 08:59 → 5E 13:05 → EDHOLD 13:05 → ICCU 19:25 → 5E 07-02 10:25
PROVIDERS: Emergency Medicine; Family Medicine; Student in an Organized Health Care Education/Training Program; ADMIT Internal Medicine; ATTEND Internal Medicine
PROC: 02HV33Z Insertion of Infusion Device into Superior Vena Cava, Percutaneous Approach (ICD-10-PCS; principal; 2023-06-29)
PROC: B548ZZA Ultrasonography of Superior Vena Cava, Guidance (ICD-10-PCS; 2023-06-29)
DX: T83.511A Infection and inflammatory reaction due to indwelling urethral catheter, initial encounter (principal); A41.51 Sepsis due to Escherichia coli [E. coli]; I21.4 Non-ST elevation (NSTEMI) myocardial infarction; R65.21 Severe sepsis with septic shock; N17.0 Acute kidney failure with tubular necrosis; J18.9 Pneumonia, unspecified organism; I48.21 Permanent atrial fibrillation; C91.10 Chronic lymphocytic leukemia of B-cell type not having achieved remission; N18.9 Chronic kidney disease, unspecified; I12.9 Hypertensive chronic kidney disease with stage 1 through stage 4 chronic kidney disease, or unspecified chronic kidney disease; Y84.6 Urinary catheterization as the cause of abnormal reaction of the patient, or of later complication, without mention of misadventure at the time of the procedure; Y92.89 Other specified places as the place of occurrence of the external cause; D53.9 Nutritional anemia, unspecified; N40.1 Benign prostatic hyperplasia with lower urinary tract symptoms; R33.8 Other retention of urine; F41.9 Anxiety disorder, unspecified; R31.9 Hematuria, unspecified; N18.31 Chronic kidney disease, stage 3a; Z90.49 Acquired absence of other specified parts of digestive tract; Z95.0 Presence of cardiac pacemaker; Z79.899 Other long term (current) drug therapy; Z87.891 Personal history of nicotine dependence; Z83.3 Family history of diabetes mellitus; Z68.27 Body mass index [BMI] 27.0-27.9, adult

== ENCOUNTER 2023-09-15 08:43 | Emergency (ER) | payer OTHER ==
[~2023-09-15] VITALS: Wt 90.3 kg
[~2023-09-15 08:43] MED LIST changes: +ASPIRIN ADULT L81 M2 PO; +ATORVASTATIN CA40 M1 PO; +BUMETANIDE1 MG PO; +CEFTRIAXON2 GM/50 ML IV; +ELIQUIS5 M1 PO; +Ipratropium Brom3 ML INH; +KEFLEX 500 MG E2 CAP PO; +METAMUCIL PACK3.4 GM PO; +METOPROLOL SUCC25 M2 PO; +SERTRALINE HYDR50 MG PO; +VOLTAREN ARTHRI20 GM T; +XARE20MG PO
[2023-09-15 09:03] LABS: HEMATOCRIT 37.1 % (42.0-52.0); MEAN CELL VOLUME 93.9 fl (80.0-94.0); MEAN CORPUSCULAR HGB 28.9 pg (27.0-31.0); MEAN CORPUSCULAR HGB CONC 30.7 g/dl (33.0-37.0); MEAN PLATELET VOLUME 8.7 fl (9.6-12.3); PLATELET COUNT AUTOMATED 186 10*3/uL (130-400); RED BLOOD COUNT 3.95 10*6/uL (4.50-5.90); RED CELL DISTRI WIDTH 14.7 % (0-14.5); WHITE BLOOD COUNT 23.1 10*3/uL (4.8-10.8)
[2023-09-15 09:08] LABS: MANUAL DIFF REFLEX YES
[2023-09-15 09:19] LABS: ACT PARTIAL THROMBO TIME 31.4 SECONDS (20.0-32.1)
[2023-09-15] MEDS ORDERED: TYLENOL325 M1 PO (09:24)
[2023-09-15 09:28] LABS: ALKALINE PHOSPHATASE 76 U/L (46-116); BUN 11 mg/dl (9-23); CHLORIDE 102 mmol/L (98-107); POTASSIUM 3.7 mmol/L (3.4-5.1); SGPT/ALT 9 U/L (5-49); TOTAL PROTEIN 6.9 gm/dL (6.0-8.0)
[2023-09-15 09:36] LABS: TOTAL CELLS COUNTED 100 #CELLS
[2023-09-15 09:38] LABS: PLATELET SUFFICIENCY NORMAL (NORMAL)
[2023-09-15] MEDS ORDERED: Ondansetron Hydrochloride 4 MG/2 ML VIAL IV ONE (10:05)
[2023-09-15] MEDS ORDERED: MORPHINE Sulfate 2 MG/ML SYR IV ONE (10:05)
[2023-09-15] MEDS ORDERED: HYDROmorphONE Hydrochloride 0.5 MG/0.5 ML SYRINGE IV ONE (13:15)
[2023-09-15] MEDS ORDERED: Ceftriaxone Sodium 1 GM/10 ML SYR IV ONE (13:30)
[2023-09-15] MEDS ORDERED: Doxycycline Hyclate 100 MG in SODIUM CHLORIDE 0.9% 250 ML IV ONE (13:30)
== END 2023-09-15 16:08 | disposition short-term general hospital (02) ==
LOC: ED 08:43
PROVIDERS: Internal Medicine
DX: S32.028A Other fracture of second lumbar vertebra, initial encounter for closed fracture (principal); S02.85XA Fracture of orbit, unspecified, initial encounter for closed fracture; M25.511 Pain in right shoulder; I10 Essential (primary) hypertension; M19.90 Unspecified osteoarthritis, unspecified site; I48.91 Unspecified atrial fibrillation; Z90.49 Acquired absence of other specified parts of digestive tract; Z98.890 Other specified postprocedural states; V89.2XXA Person injured in unspecified motor-vehicle accident, traffic, initial encounter; Y93.89 Activity, other specified; Y92.410 Unspecified street and highway as the place of occurrence of the external cause; Y99.8 Other external cause status